=== PATIENT | female | born 1945 | race Caucasian/White ===

== ENCOUNTER 2020-10-28 14:20 | Emergency (ER) | payer OTHER ==
[~2020-10-28] VITALS: Ht 167.6 cm; Wt 83.9 kg
[2020-10-28] MEDS ORDERED: CO Q-1010 MG PO (14:43)
[2020-10-28] MEDS ORDERED: PROAIR HFA8.5 GM INH (14:43)
[2020-10-28] MEDS ORDERED: ASA81BEC PO (14:43)
[2020-10-28] MEDS ORDERED: NORVASC10 MG PO (14:43)
[2020-10-28] MEDS ORDERED: COZAAR 50 MG TA50 M1 PO (14:44)
[2020-10-28] MEDS ORDERED: FLONASE 0.05%50 MCG NARES (14:44)
[2020-10-28] MEDS ORDERED: SUPER THERAVIT1 EACH PO (14:45)
[2020-10-28] MEDS ORDERED: AUGMENTIN 875-1 EACH PO (16:14)
[2020-10-28] MEDS ORDERED: NORCO5 PO (16:14)
[2020-10-28 16:31] VITALS: BP 138/55
== END 2020-10-28 16:32 | disposition home or self-care (01) ==
LOC: ER 14:20
DX: S02.2XXA Fracture of nasal bones, initial encounter for closed fracture (principal); S00.81XA Abrasion of other part of head, initial encounter; I10 Essential (primary) hypertension; J45.909 Unspecified asthma, uncomplicated; Z90.710 Acquired absence of both cervix and uterus; Z90.49 Acquired absence of other specified parts of digestive tract; Z88.5 Allergy status to narcotic agent; Z88.1 Allergy status to other antibiotic agents; W03.XXXA Other fall on same level due to collision with another person, initial encounter; Y93.89 Activity, other specified; Y92.834 Zoological garden (Zoo) as the place of occurrence of the external cause; Y99.8 Other external cause status